=== PATIENT | female | born 1975 | race African-American/Black ===

== ENCOUNTER 2017-05-16 12:15 | Emergency (ER) | payer MEDICAID, OTHER ==
[~2017-05-16] VITALS: Ht 165.1 cm; Wt 70.3 kg
[~2017-05-16 12:15] MED LIST: CYCLOBENZAPRINE10 MG ORAL; HYDROCODON-ACE1 EA15 ORAL; IBUPROFEN600 MG ORAL; IBUPROFEN600 MG PO; NORCO 5-325 TA1 EACH ORAL
--- NOTE | 2017-05-16 12:44 | Emergency Room Report ---
History of Present Illness General Chief Complaint: Lower Extremity Injury Source: Patient Present Illness HPI 41 yo Female presents for left toe pain States she stubbed her toe last night at work. Complains of pain worse with movement of toes. Reports she did not take any pain medication for relief of symptoms. States she is able ambulate but "only on back of foot", unable to place weight on front of her foot. Patient requesting completion of paperwork for work. Patient denies fever, chest pain, SOB, loss of sensation of extremities. Allergies: Coded Allergies: MEPERIDINE (Verified Allergy, Severe, rash, 07/02/13) Patient History Past Medical History: see triage record Social History: Denies: smoking, alcohol use, drug use Last Menstrual Period: 04/27/17 Immunizations: UTD Reviewed Nursing Documentation: PMH: Agreed, PSxH: Agreed Nursing Documentation-PMH Past Medical History: No Stated History Review of Systems All Other Systems: negative except mentioned in HPI Physical Exam Vital Signs Date Time Temp Pulse Resp B/P (MAP) Pulse Ox O2 Delivery O2 Flow Rate FiO2 05/16/17 12:20 99.1 85 18 119/63 100 Room Air Sp02 EP Interpretation: reviewed, normal General Appearance: alert, GCS 15, non-toxic, mild distress Head: normocephalic, atraumatic Eyes: bilateral eye normal inspection, bilateral eye PERRL, bilateral eye EOMI ENT: hearing grossly normal, normal pharynx, no angioedema, normal voice, uvula midline Respiratory: chest non-tender, lungs clear, normal breath sounds, no respiratory distress, speaking full sentences Cardiovascular #1: regular rate, rhythm Cardiovascular #2: 2+ dorsalis pedis (R), 2+ dorsalis pedis (L) Musculoskeletal: no calf tenderness, decreased range of motion - toes secondary to pain, unable to wiggle big toe, Ruby's Sign negative, swelling - mild swelling, other - NVI, no erythema Neurologic: abnormal gait - secondary to pain Psychiatric: mood/affect normal Skin: normal color, no rash, warm/dry, well hydrated Medical Decision Making PA Attestation Dr. Little is my supervising Physician whom patient management has been discussed with. Diagnostic Impression: Primary Impression: Toe pain, left ER Course Pt. presents to the ED c/o left toe pain Ddx considered but are not limited to fracture, sprain, strain, contusion, cellulitis, DVT. Vital signs: are WNL, pt. is afebrile ORDERS: Xray of the left foot was ordered, results show no acute fracture, per preliminary reading. ED INTERVENTIONS: Ibuprofen Cast shoe was applied. The affected foot was checked afterwards by me showing good alignment and support with distal neurovascular functioning intact. Crutches provided. DISCHARGE: -Rx provided for Ibuprofen for pain symptoms. At this time pt. is stable for d/c to home. Will provide printed patient care instructions, and any necessary prescriptions. Patient instructed to follow with primary care provider in 2 - 3 days and to request further orthopedic follow-up. Care plan and follow up instructions have been discussed with the patient prior to discharge. Patient instructed on RICE method: rest, ice, compression, elevation. Patient instructed to be WBAT. Work note signed and provided to patient sating she is WBAT and needs follow-up with PCP to discuss modified work activity. Take medications as directed. Patient questions asked and answered. ER precautions given, patient instructed to return to ER immediately for any new or worsening of symptoms. Other X-Ray Diagnostic Results Other X-Ray Diagnostic Results : X-Ray ordered: Left foot # of Views/Limited Vs Complete: 2 View Indication: Pain EP Interpretation: Yes PA Xray: Interpretation reviewed, by supervising MD, and agrees with findings. Interpretation: no dislocation, no soft tissue swelling, no fractures Impression: No acute disease PA Scribe Text Abraham Burleson PA-C Last Vital Signs Date Time Temp Pulse Resp B/P (MAP) Pulse Ox O2 Delivery O2 Flow Rate FiO2 05/16/17 12:20 99.1 85 18 119/63 100 Room Air Disposition: HOME, SELF-CARE Condition: Stable Scripts Ibuprofen* (MOTRIN*) 600 Mg Tablet 600 MG ORAL Q8H Y for For Pain, #30 TAB 0 Refills Prov: Preston Burleson 05/16/17 Patient Instructions: Foot Contusion Additional Instructions: Followup with primary care provider in 2- 3 days. Patient instructed on RICE method: rest, ice, compression, elevation. Patient instructed to be WBAT. Take medications as directed. Patient questions asked and answered. ER precautions given, patient instructed to return to ER immediately for any new or worsening of symptoms. Preston Burleson May 16, 2017 12:44
[2017-05-16] MEDS ORDERED: IBUPROFEN600 MG ORAL (13:22)
[2017-05-16 13:30] VITALS: BP 119/63
--- NOTE | 2017-05-17 09:27 | Diagnostic Imaging Report ---
Indication: Pain Technique: XRAY Foot Complete L Comparison: 07/09/2014 Findings: There is no acute fracture or dislocation. Lisfranc alignment of the foot is preserved. Joint spaces are within normal limits. No focal soft tissue abnormality is appreciated. No radiopaque foreign body seen. Impression: No acute fracture or dislocation.
== END 2017-05-16 13:22 | disposition home or self-care (01) ==
LOC: EMR 12:55
DX: M79.675 Pain in left toe(s) (principal)
CPT/HCPCS: 99283

== ENCOUNTER 2017-12-02 18:01 | Emergency (ER) | payer MEDICAID, OTHER ==
[~2017-12-02] VITALS: Ht 165.1 cm; Wt 70.3 kg
[2017-12-02 18:12] VITALS: BP 132/70
[2017-12-02] MEDS ORDERED: Tylenol #3 tab (300mg/30mg) PO ONE (18:30)
[2017-12-02] MEDS ORDERED: ACETAMINOPHEN-1 EAC1 ORAL (19:17)
[2017-12-02] MEDS ORDERED: IBUPROFEN600 MG ORAL (19:17)
[2017-12-02 19:35] VITALS: BP 132/70
--- NOTE | 2017-12-03 09:56 | Diagnostic Imaging Report ---
Clinical Indication:Wrist pain Technique: 3 views of the left wrist Comparison: None Findings: No acute fractures. No dislocations. The joint spaces are preserved Impression: Negative
--- NOTE | 2017-12-03 09:58 | Diagnostic Imaging Report ---
Indication: Pain Technique: 3 views left hand Comparison: none Findings: No acute fractures. No dislocations. The joint spaces are preserved. Impression: Negative
--- NOTE | 2017-12-06 07:08 | Emergency Room Report ---
History of Present Illness General Chief Complaint: Upper Extremity Injury Source: Patient Present Illness HPI 42-year-old female presents ED for evaluation. Patient complaining of left wrist pain status post trip and fall this morning. Denies any other injuries. Pain is throbbing, 7 out of 10, nonradiating. States she took [id number] ibuprofen without significant relief. No other aggravating relieving factors. Denies any other associated symptoms Allergies: Coded Allergies: MEPERIDINE (Verified Allergy, Severe, rash, 07/02/13) Patient History Past Medical History: none Past Surgical History: none Pertinent Family History: none Social History: Denies: smoking, alcohol use, drug use Last Menstrual Period: 11/20/17 Now: No Immunizations: UTD Reviewed Nursing Documentation: PMH: Agreed; PSxH: Agreed Nursing Documentation-PMH Past Medical History: No Stated History Review of Systems All Other Systems: negative except mentioned in HPI Physical Exam Vital Signs Date Time Temp Pulse Resp B/P (MAP) Pulse Ox O2 Delivery O2 Flow Rate FiO2 12/02/17 18:03 98.9 91 18 132/70 97 Room Air 99.0 Sp02 EP Interpretation: reviewed, normal General Appearance: no apparent distress, alert, GCS 15, non-toxic Head: normocephalic, atraumatic Eyes: bilateral eye normal inspection, bilateral eye PERRL ENT: hearing grossly normal, normal pharynx, no angioedema, normal voice Neck: full range of motion, supple/symm/no masses Respiratory: chest non-tender, lungs clear, normal breath sounds, speaking full sentences Cardiovascular #1: regular rate, rhythm, no edema Cardiovascular #2: 2+ carotid (R), 2+ carotid (L), 2+ radial (R), 2+ radial (L) , 2+ dorsalis pedis (R), 2+ dorsalis pedis (L) Gastrointestinal: normal bowel sounds, non tender, soft, non-distended, no guarding, no rebound Rectal: deferred Genitourinary: normal inspection, no CVA tenderness Musculoskeletal: back normal, gait/station normal, tender - +snuffbox pain, + axial loading pain Neurologic: alert, oriented x3, responsive, motor strength/tone normal, sensory intact, speech normal Psychiatric: judgement/insight normal, memory normal, mood/affect normal, no suicidal/homicidal ideation Reflexes: 3+ bicep (R), 3+ bicep (L), 3+ tricep (R), 3+ tricep (L), 3+ knee (R) , 3+ knee (L) Skin: normal color, no rash, warm/dry, well hydrated Lymphatic: no adenopathy Procedures Splinting Splinting : Consent: Verbal Splint: thumb spica Pre-Proc Neuro Vasc Exam: normal Post-Proc Neuro Vasc Exam: normal Patient Tolerated: Well Complications: None Medical Decision Making Diagnostic Impression: Primary Impression: Wrist injury Qualified Codes: S69.92XA - Unspecified injury of left wrist, hand and finger( s), initial encounter ER Course Hospital Course 42-year-old F presents to ED complaining of L wrist pain s/p trip and fall Differential diagnoses include: Fracture, dislocation, sprain, contusion Clinical course Patient placed on stretcher. After initial history and physical, I ordered pain medications and Xrays of L hand/wrist Xrays prelim read shows no acute fracture/dislocation. Given snuffbox pain and pain with axial loading there is concern for scaphoid fracture. Placed in thumb spica splint. Discussed findings with patient. She states she will follow-up with her PMD. Diagnosis - wrist injury Stable and discharged to home with prescription for Motrin, Tylenol #3. apply ice, keep elevated. weight bear as tolerated. Followup with PMD/ortho. Return to ED if symptoms recur or worsen Other X-Ray Diagnostic Results Other X-Ray Diagnostic Results #1: X-Ray ordered: L wrist # of Views/Limited Vs Complete: 3 View Indication: Pain EP Interpretation: Yes Interpretation: no dislocation, no soft tissue swelling, no fractures Impression: No acute disease Electronically Signed by: Electronically signed by Mo Little MD Other X-Ray Diagnostic Results #2: X-Ray ordered: L hand # of Views/Limited Vs Complete: 3 View Indication: Pain EP Interpretation: Yes Interpretation: no dislocation, no soft tissue swelling, no fractures Impression: No acute disease Electronically Signed by: Electronically signed by Mo Little MD Last Vital Signs Date Time Temp Pulse Resp B/P (MAP) Pulse Ox O2 Delivery O2 Flow Rate FiO2 12/02/17 19:35 99.0 18 132/70 97 Room Air 210.2 8/9/18 18:12 91 Status: improved Disposition: HOME, SELF-CARE Condition: Stable Scripts Acetaminophen With Codeine (T#3) (TYLENOL #3 TAB*) Y Tab 1 TAB ORAL Q8H PRN for For Pain, #20 TAB Prov: Mo Little MD 12/02/17 Ibuprofen* (MOTRIN*) 600 Mg Tablet 600 MG ORAL Q8H PRN for For Pain, #30 TAB 0 Refills Prov: Mo Little MD 12/02/17 Patient Instructions: Scaphoid Fracture, Wrist Mo Little MD Dec 06, 2017 07:08
== END 2017-12-02 19:39 | disposition home or self-care (01) ==
LOC: EMR 19:02
DX: S69.92XA Unspecified injury of left wrist, hand and finger(s), initial encounter (principal); W01.0XXA Fall on same level from slipping, tripping and stumbling without subsequent striking against object, initial encounter; Y92.9 Unspecified place or not applicable; Z88.8 Allergy status to other drugs, medicaments and biological substances
CPT/HCPCS: 29130; 99283

== ENCOUNTER 2018-05-18 19:01 | Emergency (ER) | payer MEDICAID ==
[~2018-05-18] VITALS: Ht 165.1 cm; Wt 69.4 kg
[~2018-05-18 19:01] MED LIST changes: +ACETAMINOPHEN-1 EAC1 ORAL
--- NOTE | 2018-05-18 20:00 | NUR ---
ED Nurse Note: pt walked in ED c/o left palm pain, pt states she fell on her left hand couple days ago and has been having pain ever since with weakness and tingling sensation. no obvious deformity or contusion noted, cms intact and cap refill <3sec. will cont monitor.
[2018-05-18 20:01] VITALS: BP 110/70
--- NOTE | 2018-05-18 20:27 | Emergency Room Report ---
History of Present Illness General Chief Complaint: Pain Source: Patient Present Illness HPI Patient is a 42-year-old female presented after increased left-sided hand pain. Patient had approximately 2-week ago fall. Patient was noted to have increased pain to the palmar surface. This is worse with movements. Patient is right-hand dominant. Allergies: Coded Allergies: MEPERIDINE (Verified Allergy, Severe, rash, 07/02/13) Patient History Last Menstrual Period: 05/18/18 Now: No Reviewed Nursing Documentation: PMH: Agreed; PSxH: Agreed Nursing Documentation-PMH Past Medical History: No Stated History Review of Systems All Other Systems: negative except mentioned in HPI Physical Exam Vital Signs Date Time Temp Pulse Resp B/P (MAP) Pulse Ox O2 Delivery O2 Flow Rate FiO2 05/18/18 19:09 81 14 110/70 99 Room Air 05/18/18 20:01 98.2 General Appearance: well appearing, no apparent distress, alert, GCS 15, non- toxic Head: normocephalic, atraumatic ENT: hearing grossly normal, normal voice Neck: full range of motion, supple Respiratory: no respiratory distress, speaking full sentences Musculoskeletal: other - tenderness to left hand hypothenar eminence Neurologic: normal gait Psychiatric: mood/affect normal Skin: no rash Medical Decision Making Diagnostic Impression: Primary Impression: Contusion, hand ER Course Patient presented for hand pain after fall. Differential diagnosis include was not limited to fracture, contusion, sprain, dislocation among others. Patient does not appear to have any soft tissue swelling at this time. X-ray imaging of the left hand 3 views interpreted by me showed normal bony alignment without evident fracture. Patient given prescription for topical NSAIDs. Patient does not appear to have any evidence of scaphoid tenderness at this time. Patient was advised to follow-up with primary care for recheck if not improved. Last Vital Signs Date Time Temp Pulse Resp B/P (MAP) Pulse Ox O2 Delivery O2 Flow Rate FiO2 05/18/18 20:01 98.2 76 14 110/70 99 Room Air Status: improved Disposition: HOME, SELF-CARE Condition: Stable Scripts Diclofenac Sodium (VOLTAREN) 100 Gm Gel..gram. 5 GM TP EVERY 12 HOURS for pain, #100 GM Prov: Nirmal Newton MD 05/18/18 Nirmal Newton MD May 18, 2018 20:27
[2018-05-18] MEDS ORDERED: VOLTAREN100 G1 TP (20:32)
[2018-05-18 20:50] VITALS: BP 114/67
--- NOTE | 2018-05-18 21:08 | NUR ---
ED Nurse Note: pt discharge instruction provided w/ prescription, left hand supported w/ tori wrap per ermd order, pt education done via discussion and hand out, wristband removed, pt advised to follow up with pcp or return to ed if s/s worsen or new s/s develop, pt verbalized understanding and agrees with plan.
--- NOTE | 2018-05-19 10:53 | Diagnostic Imaging Report ---
Indication: Left hand pain Technique: 3 views left hand Comparison: none Findings: No acute fractures. No dislocations. The joint spaces are preserved. Very slight irregularity of the anterior corner of the base of the fifth distal phalanx is probably degenerative in nature Impression: No definite acute bony trauma
== END 2018-05-18 20:50 | disposition home or self-care (01) ==
LOC: EMR 19:50
DX: S60.222A Contusion of left hand, initial encounter (principal); W19.XXXA Unspecified fall, initial encounter; Y92.9 Unspecified place or not applicable
CPT/HCPCS: 99283

== ENCOUNTER 2018-08-04 04:50 | Emergency (ER) | payer SELFPAY ==
[~2018-08-04] VITALS: Ht 165.1 cm; Wt 69.4 kg
[~2018-08-04 04:50] MED LIST changes: +VOLTAREN100 G1 TP
[2018-08-04 05:11] VITALS: BP 115/62
--- NOTE | 2018-08-04 05:12 | NUR ---
ED Nurse Note: Patient walked in with steady gait c/o left arm pain 11/02. Patient deny any injury, fall. AAO x4, VSS at this time, skin is dry, intact, warm to touch.
[2018-08-04] MEDS ORDERED: MEDROL DOSEPAK4 MG ORAL (05:13)
[2018-08-04 05:18] VITALS: BP 115/62
--- NOTE | 2018-08-04 05:19 | NUR ---
ED Nurse Note: Pt cleared by health care Provider for discharge. DC instructions/prescription was given and explained to pt and verbalized understanding of teachings. All medical deviecs such as ID band removed. Pt is AAO x4, ambulatory and left with all personal belongings.
--- NOTE | 2018-08-05 00:58 | Emergency Room Report ---
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 Patient reports that she was told by her surgeon that she was anemic Patient was getting evaluated for a tummy tuck Denies any lightheadedness denies any dizziness otherwise And has recently started taking iron pills Allergies: Coded Allergies: MEPERIDINE (Verified Allergy, Severe, rash, 08/04/18) Patient History Past Medical History: see triage record Pertinent Family History: none Last Menstrual Period: 08-01-2018 Now: No Reviewed Nursing Documentation: PMH: Agreed; PSxH: Agreed Nursing Documentation-PMH Past Medical History: No Stated History Review of Systems All Other Systems: negative except mentioned in HPI Physical Exam Vital Signs Date Time Temp Pulse Resp B/P (MAP) Pulse Ox O2 Delivery O2 Flow Rate FiO2 08/04/18 05:01 98.1 79 16 115/62 99 Sp02 EP Interpretation: reviewed, normal General Appearance: well appearing, no apparent distress Head: normocephalic, atraumatic Eyes: bilateral eye PERRL, bilateral eye EOMI ENT: hearing grossly normal, normal pharynx, TMs + canals normal, uvula midline Neck: full range of motion, supple, no meningismus, no bony tend Respiratory: lungs clear, normal breath sounds, no rhonchi, no respiratory distress, no retraction, no accessory muscle use Cardiovascular #1: normal peripheral pulses, regular rate, rhythm, no edema, no gallop, no JVD, no murmur Gastrointestinal: normal bowel sounds, non tender, soft, no mass, no organomegaly, non-distended, no guarding, no hernia, no pulsatile mass, no rebound Genitourinary: no CVA tenderness Musculoskeletal: normal inspection Neurologic: oriented x3, responsive, 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, motor strength/ tone normal, sensory intact Psychiatric: mood/affect normal Skin: normal color, no rash, warm/dry, palpation normal Lymphatic: normal inspection, no adenopathy Medical Decision Making Diagnostic Impression: Primary Impression: radiculopathy ER Course Patient is a fairly benign medical evaluation Equal 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 Patient subjectively points the left lateral aspect of the neck for the discomfort also left upper shoulder region with some radiation down the left arm Does not sound to be cardiac in nature Patient does have recent diagnosis of anemia and requires improved outpatient evaluation Patient does not know what her hemoglobin count was however was told to start iron pills I did not feel patient met criteria for initial acute workup and is stable for conservative outpatient reevaluation urgently Last Vital Signs Date Time Temp Pulse Resp B/P (MAP) Pulse Ox O2 Delivery O2 Flow Rate FiO2 08/04/18 05:18 98.1 16 115/62 99 08/04/18 05:01 79 Status: unchanged Disposition: HOME, SELF-CARE Condition: Stable Scripts Methylprednisolone (Methylprednisolone*) 4MG Dspk 4 MG ORAL DIRECTED for 6 Days, #21 EA 0 Refills Day 1: Two tablets before breakfast, one after lunch, one after dinner, and two at bedtime. If started late in the day, take all six tablets at once or divide into two or three doses, unless otherwise directed by prescriber. Day 2: One tablet before breakfast, one after lunch, one after dinner, and two at bedtime Day 3: One tablet before breakfast, one after lunch, one after dinner, and one at bedtime Day 4: One tablet before breakfast, one after lunch, and one at bedtime Day 5: One tablet before breakfast and one at bedtime Day 6: One tablet before breakfast Prov: Ana Saldana DO 08/04/18 Departure Forms: Return to Work Return to Work in (Days): 1 Return to Work Date: Aug 05, 2018 Patient Instructions: Cervical Radiculopathy, [id number] Additional Instructions: Patient is provided with the discharge instructions notified to follow up with primary doctor in the next 2-3 days otherwise return to the er with any worsening symptoms. Please note that this report is being documented using [employer] technology. This can lead to erroneous entry secondary to incorrect interpretation by the dictating instrument. Ana Saldana DO Aug 05, 2018 00:58
== END 2018-08-04 05:19 | disposition home or self-care (01) ==
LOC: EMR 05:01
DX: M54.10 Radiculopathy, site unspecified (principal)
CPT/HCPCS: 99282